=== PATIENT | male | born 1995 | race American Indian/Alaskan Native ===

== ENCOUNTER 2018-10-12 23:18 | Emergency (ER) | payer OTHER ==
[2018-10-12 23:42] VITALS: BP 128/84
[2018-10-13] MEDS ORDERED: KEFLEX PO ONE (02:13)
[2018-10-13] MEDS ORDERED: XYLOCAINE 1% MPF 5 mL INFILTRATI ONE (02:13)
[2018-10-13] MEDS ORDERED: NORCO 5/325 PO ONE (02:13)
[2018-10-13] MEDS ORDERED: BOOSTRIX IM ONE (02:51)
--- NOTE | 2018-10-13 02:56 | Emergency Department Report ---
- General Chief Complaint: Laceration/Recheck/Suture Stated Complaint: HAND LACERATION Time Seen by Provider: 10/13/18 01:38 Source: patient Mode of arrival: Ambulatory Limitations: No Limitations - History of Present Illness Initial Comments: Patient 22-year-old [place] male who presents for a right dorsal hand laceration states he was cutting a piece of frozen chicken the night slipped and went across exam causing a 7 cm laceration bleeding is controlled by direct pressure at home there is no tendon or muscle damage range of motion is intact There is no numbness no tingling or deformity Onset/Timin -: hour(s) Extremity Location: Right: Hand Place: home Patient Tetanus UTD: No Context: accidental Associated Symptoms: pain - Related Data Previous Rx's Medication Instructions Recorded Last Taken Type Cephalexin [Keflex] 500 mg PO TID 10 Days #30 capsule 10/13/18 Unknown Rx Neomycn/Bacitrc/Polymyx/Pramox 1 applicatio TP BID #1 tube 10/13/18 Unknown Rx [Neosporin + Pain Relief Oint] Tramadol HCl [Ultram] 50 mg PO Q6H PRN #12 tablet 10/13/18 Unknown Rx Allergies Allergy/AdvReac Type Severity Reaction Status Date / Time No Known Allergies Allergy Unverified 07/08/18 22:52 ED Review of Systems ROS: Stated complaint: HAND LACERATION Other details as noted in HPI Constitutional: denies: chills, fever Eyes: denies: eye pain, eye discharge, vision change ENT: denies: ear pain, throat pain Respiratory: denies: cough, shortness of breath, wheezing Cardiovascular: denies: chest pain, palpitations Endocrine: no symptoms reported Gastrointestinal: denies: abdominal pain, nausea, diarrhea Genitourinary: denies: urgency, dysuria Musculoskeletal: denies: back pain, joint swelling, arthralgia Skin: other (right dorsal hand laceration 7 cm ) Neurological: denies: headache, weakness, paresthesias Psychiatric: denies: anxiety, depression Hematological/Lymphatic: denies: easy bleeding, easy bruising ED Past Medical Hx - Past Medical History Previous Medical History?: No - Surgical History Past Surgical History?: No - Social History Smoking Status: Current Every Day Smoker Substance Use Type: Alcohol, Marijuana - Medications Home Medications: Home Medications Medication Instructions Recorded Confirmed Last Taken Type Cephalexin [Keflex] 500 mg PO TID 10 Days #30 capsule 10/13/18 Unknown Rx Neomycn/Bacitrc/Polymyx/Pramox 1 applicatio TP BID #1 tube 10/13/18 Unknown Rx [Neosporin + Pain Relief Oint] Tramadol HCl [Ultram] 50 mg PO Q6H PRN #12 tablet 10/13/18 Unknown Rx ED Physical Exam - General Limitations: No Limitations General appearance: alert, in no apparent distress - Head Head exam: Present: atraumatic, normocephalic - Eye Eye exam: Present: normal appearance, PERRL, EOMI Pupils: Present: normal accommodation - ENT ENT exam: Present: normal exam, normal orophraynx, mucous membranes moist - Neck Neck exam: Present: normal inspection, full ROM - Respiratory Respiratory exam: Present: normal lung sounds bilaterally, wheezes, rhonchi, chest wall tenderness. Absent: respiratory distress - Cardiovascular Cardiovascular Exam: Present: regular rate, normal rhythm. Absent: systolic murmur, diastolic murmur, rubs, gallop - GI/Abdominal GI/Abdominal exam: Present: soft, normal bowel sounds - Rectal Rectal exam: Present: deferred - Extremities Exam Extremities exam: Present: normal inspection - Expanded Upper Extremity Exam Right Hand Wrist exam: Present: full ROM, laceration (right dorsal hand laceration). Absent: tenderness, swelling, abrasion, ecchymosis, deformity, crepidus, dislocation, erythema, amputation, nail avulsion, subungual hematoma Neuro motor exam: Present: wrist extension intact, thumb opposition intact, thumb IP flexion intact, thumb adduction intact, fingers 2-5 abduction intact Neurosensory exam: Present: 2-point discrimination, radial nerve intact, ulnar nerve intact, median nerve intact Vascular: Present: normal capillary refill, radial pulse, brachial pulse, ulnar pulse. Absent: vascular compromise, pulse deficit radial art, pulse deficit ulnar art, pulse deficit brachial art - Back Exam Back exam: Present: normal inspection, full ROM - Neurological Exam Neurological exam: Present: alert, oriented X3, CN II-XII intact, normal gait, reflexes normal. Absent: motor sensory deficit - Psychiatric Psychiatric exam: Present: normal affect, normal mood - Skin Skin exam: Present: warm, dry, intact, normal color. Absent: rash ED Course Vital Signs 10/12/18 23:40 Temperature 98.1 F Pulse Rate 94 H Respiratory 20 Rate Blood Pressure 128/84 O2 Sat by Pulse 100 Oximetry - Laceration /Wound Repair Right Dorsal Hand Wound Location: upper extremity Wound's Depth, Shape: superficial, irregular Wound Explored: clean Irrigated w/ Saline (ccs): 50 Betadine Prep?: Yes Anesthesia: 1% Lidocaine Volume Anesthetic (ccs): 5 Wound Debrided: minimal Wound Repaired With: sutures Suture Size/Type: 4:0, proline Number of Sutures: 18 Layer Closure?: No Progress: Right dorsal hand laceration 7 cm Normal similar with tendon involvement range of motion is intact TR[employer]UMP[employer] is intact distal pulses intact bleeding controlled by direct pressure prior to arrival was cleaned with Betadine solution and anesthesia with lidocaine plain 5 mL wound rrigated with 50 mL of sterile saline and closed with 4. 0 Prolene 18 sutures running edges well approximated using his controlled sterile dressing is applied x-rays noted no foreign bodies was explored and visualized clear range of motion remains intact after closure patient given wound care instructions were verbalized understanding of same follow with PCP in 2 days for wound check 710 days for suture removal patient tolerated procedure with minimal distress ED Medical Decision Making - Radiology Data Radiology results: report reviewed, image reviewed - Medical Decision Making C procedure note all bleeding is controlled patient tolerated procedure with minimal distress given wound care instructions patient will follow with PCP N2 days for wound check 7-10 days for suture removal CMS remains intact patient was DC'd home in stable condition at this time sterile dressing is applied bleeding was controlled Critical care attestation.: If time is entered above; I have spent that time in minutes in the direct care of this critically ill patient, excluding procedure time. ED Disposition Clinical Impression: Laceration of hand Qualifiers: Encounter type: initial encounter Foreign body presence: without foreign body Laterality: right Qualified Code(s): S61.411A - Laceration without foreign body of right hand, initial encounter Disposition: DC-01 TO HOME OR SELFCARE Is pt being admited?: No Does the pt Need Aspirin: No Condition: Stable Instructions: Laceration (ED) Prescriptions: Cephalexin [Keflex] 500 mg PO TID 10 Days #30 capsule Neomycn/Bacitrc/Polymyx/Pramox [Neosporin + Pain Relief Oint] 1 applicatio TP BID #1 tube Tramadol HCl [Ultram] 50 mg PO Q6H PRN #12 tablet PRN Reason: pain Referrals: [facility] [Outside] - 3-5 Days Forms: Work/School Release Form(ED) Time of Disposition: 03:06
[2018-10-13] MEDS ORDERED: TRIPLE ANTIBIOTIC TP ONE ×2 (03:24→05:02)
--- NOTE | 2018-10-13 04:00 | XRay Report ---
PROCEDURE: XR HAND 2V RT TECHNIQUE: 3 views right hand HISTORY: laceration COMPARISONS: None FINDINGS: Alignment is anatomic and joint spaces are preserved. No fracture or radiodense foreign body IMPRESSION: No fracture or radiodense foreign body in the right hand This document is electronically signed by Chaparro Brady MD., October 13 2018 03:58:20 AM ET
== END 2018-10-13 02:00 | disposition home or self-care (01) ==
LOC: ED 23:18
DX: S61.411A Laceration without foreign body of right hand, initial encounter (principal); F17.200 Nicotine dependence, unspecified, uncomplicated; F12.10 Cannabis abuse, uncomplicated; W45.8XXA Other foreign body or object entering through skin, initial encounter; Y93.89 Activity, other specified; Y92.89 Other specified places as the place of occurrence of the external cause; Y99.8 Other external cause status
CPT/HCPCS: 90471; 90715; 99283; A6250

== ENCOUNTER 2018-10-27 11:08 | Emergency (ER) | payer SELFPAY ==
[2018-10-27 11:21] VITALS: BP 131/59
--- NOTE | 2018-10-27 11:25 | Emergency Department Report ---
Suture/Staple Removal - [facility] Chief Complaint: Laceration/Recheck/Suture Stated Complaint: SUTURE REMOVAL Time Seen by Provider: 10/27/18 11:19 When Sutures or Brain Placed: >14 Days Ago Wound Location: right hand suture repair here ED Review of Systems ROS: Stated complaint: SUTURE REMOVAL Other details as noted in HPI Constitutional: denies: chills, fever Eyes: denies: eye pain, eye discharge, vision change ENT: denies: ear pain, throat pain Respiratory: denies: cough, shortness of breath, wheezing Cardiovascular: denies: chest pain, palpitations Endocrine: no symptoms reported Gastrointestinal: denies: abdominal pain, nausea, diarrhea Genitourinary: denies: urgency, dysuria Musculoskeletal: denies: back pain, joint swelling, arthralgia Skin: other (laceration to hand sutured right hand). denies: rash, lesions Neurological: denies: headache, weakness, paresthesias Psychiatric: denies: anxiety, depression Hematological/Lymphatic: denies: easy bleeding, easy bruising ED Past Medical Hx - Past Medical History Previous Medical History?: No - Surgical History Past Surgical History?: No - Social History Smoking Status: Current Every Day Smoker Substance Use Type: Alcohol, Marijuana - Medications Home Medications: Home Medications Medication Instructions Recorded Confirmed Last Taken Type Cephalexin [Keflex] 500 mg PO TID 10 Days #30 capsule 10/13/18 Unknown Rx Neomycn/Bacitrc/Polymyx/Pramox 1 applicatio TP BID #1 tube 10/13/18 Unknown Rx [Neosporin + Pain Relief Oint] Tramadol HCl [Ultram] 50 mg PO Q6H PRN #12 tablet 10/13/18 Unknown Rx Suture Removal Exam - Exam General: Vital signs noted. No distress. Alert and acting appropriately. Wound: Yes Tenderness, No Pathologic Erythema, No Drainage, No Pus, No Wound Dehiscence Other Systems: All other systems reviewed and are unremarkable. - Procedure Description Procedures done: suture removal form right hand. on continous suture removed. Critical care attestation.: If time is entered above; I have spent that time in minutes in the direct care of this critically ill patient, excluding procedure time. ED Disposition Clinical Impression: Visit for suture removal Disposition: DC- TO HOME OR SELFCARE Is pt being admited?: No Does the pt Need Aspirin: No Condition: Stable Instructions: Suture Removal (ED)
== END 2018-10-27 11:44 | disposition home or self-care (01) ==
LOC: ED 11:08
DX: S61.411D Laceration without foreign body of right hand, subsequent encounter (principal); F17.200 Nicotine dependence, unspecified, uncomplicated; F12.10 Cannabis abuse, uncomplicated; X58.XXXD Exposure to other specified factors, subsequent encounter

== ENCOUNTER 2019-04-01 12:30 | Emergency (ER) | payer OTHER ==
[2019-04-01 12:35] VITALS: BP 129/62
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
[2019-04-01] MEDS ORDERED: IBUPROFEN PO ONE (13:08)
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
== END 2019-04-01 14:40 | disposition home or self-care (01) ==
LOC: ED 12:30
DX: S16.1XXA Strain of muscle, fascia and tendon at neck level, initial encounter (principal); M54.6 Pain in thoracic spine; F17.200 Nicotine dependence, unspecified, uncomplicated; Z79.899 Other long term (current) drug therapy; Z79.1 Long term (current) use of non-steroidal anti-inflammatories (NSAID); V87.7XXA Person injured in collision between other specified motor vehicles (traffic), initial encounter; Y93.89 Activity, other specified; Y92.488 Other paved roadways as the place of occurrence of the external cause; Y99.8 Other external cause status
CPT/HCPCS: 72040; 72070; 99283